=== PATIENT | female | born 1965 | race Caucasian/White ===

== ENCOUNTER 2016-11-12 10:32 | Day surgery (SDC) | payer MEDICARE, BC ==
[~2016-11-12 10:32] MED LIST: DASETTA PO; KLONOPIN0.5 M1 PO; LEVOTHYROXINE100 MC1 PO; TOPAMAX100 M2 PO
[2016-11-13] MEDS ORDERED: IBUPROFEN800 M1 PO (11:03)
== END 2016-11-13 11:30 ==
LOC: WSU 10:32 → SHSB 10:34 → ORW 12:20 → PACU 15:07 → OBGF 15:45
PROC: 0UT94ZZ Resection of Uterus, Percutaneous Endoscopic Approach (ICD-10-PCS; principal; 2016-11-12)
PROC: 0UTC4ZZ Resection of Cervix, Percutaneous Endoscopic Approach (ICD-10-PCS; 2016-11-12)
PROC: 0UT24ZZ Resection of Bilateral Ovaries, Percutaneous Endoscopic Approach (ICD-10-PCS; 2016-11-12)
PROC: 0UT74ZZ Resection of Bilateral Fallopian Tubes, Percutaneous Endoscopic Approach (ICD-10-PCS; 2016-11-12)
DX: D25.9 Leiomyoma of uterus, unspecified (principal); N83.202 Unspecified ovarian cyst, left side; N80.9 Endometriosis, unspecified; E03.9 Hypothyroidism, unspecified; Z90.49 Acquired absence of other specified parts of digestive tract; Z88.8 Allergy status to other drugs, medicaments and biological substances; Z79.899 Other long term (current) drug therapy; Z85.3 Personal history of malignant neoplasm of breast
CPT/HCPCS: J0690; J7030